=== PATIENT | male | born 1990 | race Caucasian/White ===

== ENCOUNTER 2025-01-28 21:41 | Emergency (ER) | payer BC ==
[~2025-01-28] VITALS: Ht 175.3 cm; Wt 95.5 kg
[2025-01-28 21:43] VITALS: BP 132/82; PULSE 108; RESP 14; O2SAT 99
--- NOTE | 2025-01-28 21:56 | Physician Documentation ---
History of Present Illness ~ Chief Complaint: Anxiety Stated Complaint: NOT FEELING WELL AFTER TAKING SHROOMS Time Seen by MD: 21:55 HPI 34-year-old male who presents with the symptoms including anxiety and not feeling well after eating hallucinogenic mushrooms. He tells me that he took mushrooms along with a dose of Valium and Seroquel around 4:00 p.m.. He regularly uses mushrooms, he agreed them himself. He does not know the dose and did not weigh them He called his niece, and told her he needed to go to the emergency department for observation. He tells me he feels dizzy, has blurry vision, feels nauseous, he did vomit earlier. No chest pain or trouble breathing. No abdominal pain. No other symptoms. Medication Reconciliation Allergies: Coded Allergies: No Known Allergies (Unverified , 01/28/25) Review of Systems Respiratory: Denies: shortness of breath Gastrointestinal: Reports: nausea, vomiting; Denies: abdominal pain Neurological: Reports: dizziness Physical Exam Vital Signs: Temperature: 97.5, Source: Temporal, Heart Rate: 108, Respiratory Rate: 14, BP: 132/82, Pulse Oximetry: 99, Weight: 95.500 Oxygen Flow Rate: 0 Physical Exam General: This is an overall healthy-appearing young man, appears clinically intoxicated, family at bedside HEENT: Atraumatic, oropharynx appears dry. Pupils are dilated, 5 mm bilateral Heart: Mild tachycardic, appears regular Lungs: Clear breath sounds bilateral, normal work of breathing, normal oxygen saturation on room air Abdomen: Soft, nondistended, nontender all quadrants Extremities: Warm and well-perfused, no traumatic findings Neuro: Alert and oriented, no focal deficits. He is ambulatory Psychiatric: He appears anxious, appears clinically intoxicated, has slow delayed speech Progress Results/Orders Results/Orders Vital Signs 01/28/25 01/28/25 21:43 22:18 Temp 97.5 97.5 Pulse 108 Resp 14 B/P (MAP) 132/82 Pulse Ox 99 O2 Flow Rate 0 Medical Decision Making Differential Dx:Considerations: Include: Anxiety, Substance abuse Assessment The patient presents with multiple symptoms after ingesting hallucinogenic mushrooms and several medications. Here in the ED he is well-appearing, has no findings to suggest an acute dangerous medical or surgical emergency. I feel like his symptoms are all consistent with his reported ingestions. He was reassured, and will be discharged home with his family member who will keep an eye on him tonight. They can return if he does develop any more concerning symptoms. He was counseled to not use drugs or combined medications because this can be dangerous. Return precautions given. 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
[2025-01-28 22:18] VITALS: TEMP 97.5
== END 2025-01-28 22:22 | disposition home or self-care (01) ==
LOC: ER 21:42
DX: F16.980 Hallucinogen use, unspecified with hallucinogen-induced anxiety disorder (principal)
CPT/HCPCS: 99282